=== PATIENT | female | born 1965 | race Caucasian/White ===

== ENCOUNTER → 2017-09-25 | Outpatient (CLI) | payer OTHER ==
[2014-08-11 10:01] VITALS: BP 110/68
--- NOTE | 2017-09-25 17:21 | RAD ---
Indication: Pain Exam: Right shoulder series. Technique: AP and axillary Comparison: None. Findings: There is moderate narrowing of the glenohumeral joint. No fracture or dislocation is seen. The AC joint is intact. There are surgical clips along the right axilla . The bones are well minerali zed. Impression: Moderate osteoarthritic changes along the glenohumeral joint with no acute abnormality seen . Surgical clips scattered along the right axilla and chest wall. Reported By:
--- NOTE | 2017-09-26 06:04 | RAD ---
Examination: Cervical spine, three views History: Pain in neck and right shoulder Findings: There is slight disc narrowing at C5-6-7. Alignment is normal. No fracture, soft tissue abn ormality or odontoid lesion is noted. Impression: No acute findings. Suspect mild degenerative disc changes at lower cervical levels descri bed. Reported By:
== END ==
LOC: RAD 16:50
PROVIDERS: ATTEND Internal Medicine
DX: M25.511 Pain in right shoulder (principal); M54.2 Cervicalgia
CPT/HCPCS: 72040; 73030